=== PATIENT | female | born 1995 | race Two or more races ===

== ENCOUNTER 2023-07-25 15:12 | Emergency (ER) | payer OTHER ==
[2023-07-25 15:36] VITALS: BP 121/75; PULSE 96; RESP 18; TEMP 98; BMI 25.3
[2023-07-25] MEDS ORDERED: MAG HYDROX/AL HYDROX/SIMETH 30 ML UNIT-DOSE CUP ONE (16:09)
[2023-07-25] MEDS: MAG HYDROX/AL HYDROX/SIMETH 30 ML UNIT-DOSE CUP PO ONE (16:12)
== END 2023-07-25 16:43 | disposition home or self-care (01) ==
LOC: JERFT 15:12 → JER 15:12 → JERFT 16:43
DX: M79.631 Pain in right forearm (principal); T65.891A Toxic effect of other specified substances, accidental (unintentional), initial encounter
CPT/HCPCS: 99283-25